=== PATIENT | female | born 1980 | race Caucasian/White ===

== ENCOUNTER 2017-06-21 22:18 | Emergency (ER) | payer MEDICAID ==
[2017-06-21 22:30] VITALS: BP 142/71
--- NOTE | 2017-06-21 22:54 | EDM.PDOC ---
ED HPI GENERAL MEDICAL PROBLEM - General Chief Complaint: Lower Extremity Injury/Pain Stated Complaint: LEFT LEG CONCERN OF BLOOD CLOT Time Seen by Provider: 06/21/17 22:51 Source of Information: Reports: Patient History Limitations: Reports: No Limitations - History of Present Illness INITIAL COMMENTS - FREE TEXT/NARRATIVE: pt is a 6/para 4. She has had a superficial clot on the left leg in the past that was treated with rest. Onset: Gradual Duration: Day(s): Location: Reports: Lower Extremity, Left Associated Symptoms: Reports: No Other Symptoms, Other (pt has not had sob. 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: Hematologic History: Reports: Other (See Below) Other Hematologic History: Blood clots d/t pregnacy - Infectious Disease History Infectious Disease History: Reports: Chicken Pox - Past Surgical History GI Surgical History: Reports: Cholecystectomy Social & Family History - Tobacco Use Smoking Status *Q: Never Smoker Second Hand Smoke Exposure: No - Caffeine Use Caffeine Use: Reports: Tea - Alcohol Use Days Per Week of Alcohol Use: 0 - Recreational Drug Use Recreational Drug Use: No Review of Systems - Review of Systems Review Of Systems: See Below Constitutional: Reports: No Symptoms Eyes: Reports: No Symptoms Ears: Reports: No Symptoms Nose: Reports: No Symptoms Mouth/Throat: Reports: No Symptoms Respiratory: Reports: No Symptoms Cardiovascular: Reports: No Symptoms GI/Abdominal: Reports: No Symptoms Musculoskeletal: Reports: Other ( tenderness in the left inner knee area with some inflamation. pt does not have definite swelling. ) Skin: Reports: No Symptoms ED EXAM, GENERAL - Physical Exam Exam: See Below Free Text/Narrative:: pt has redness and tenderness on the inner aspect of the left knee. She has a history of a superficial dvt with her last . She is on asa. Exam Limited By: No Limitations General Appearance: Alert, Mild Distress Ears: Normal TMs Nose: Normal Inspection Throat/Mouth: Normal Inspection Head: Atraumatic Neck: Normal Inspection Respiratory/Chest: No Respiratory Distress Cardiovascular: Regular Rate, Rhythm GI/Abdominal: Soft, Non-Tender, Other ( 29 weeks . ) (Female) Exam: Deferred Rectal (Female) Exam: Deferred Back Exam: Normal Inspection Extremities: Other ( There is redness and swelling on the inner aspect of the left knee. This is very tender to palpate. ) Neurological: Alert, Oriented, Normal Cognition Psychiatric: Normal Affect Course - Vital Signs Last Recorded V/S: Last Vital Signs Temp 36.3 C 06/21/17 22:35 Pulse 87 06/21/17 22:35 Resp 12 06/21/17 22:35 BP 142/71 H 06/21/17 22:35 Pulse Ox 96 06/21/17 22:35 - Orders/Labs/Meds Orders: Active Orders 24 hr Category Date Time Status VL Duplex Lwr Ext Veins Ltd Lt [US] Stat Exams 06/21/17 22:50 Taken - Re-Assessments/Exams Free Text/Narrative Re-Assessment/Exam: 06/22/17 00:08 pt had an US which showed a superficial phebetis but there is no deep vein changes. Departure - Departure Time of Disposition: 00:08 Disposition: Home, Self-Care 01 Condition: Fair Clinical Impression: 29 weeks gestation of , Superficial phlebitis - Discharge Information Referrals: Brooke Madison CNM [Primary Care Provider] - Forms: ED Department Discharge Care Plan Goals: Low activity, moist warm packs to the site, appt with Lalitha Madison on fri or . - My Orders Last 24 Hours: My Active Orders 06/21/17 22:50 VL Duplex Lwr Ext Veins Ltd Lt [US] Stat - Assessment/Plan Last 24 Hours: My Active Orders 06/21/17 22:50 VL Duplex Lwr Ext Veins Ltd Lt [US] Stat
== END 2017-06-22 00:34 | disposition home or self-care (01) ==
LOC: JP.ED 22:18
DX: O22.23 Superficial thrombophlebitis in pregnancy, third trimester (principal); Z3A.29 29 weeks gestation of pregnancy; Z88.0 Allergy status to penicillin; Z79.82 Long term (current) use of aspirin
CPT/HCPCS: 93971-LT; 99283; 99284-25

== ENCOUNTER 2017-08-27 05:54 | Inpatient (IN) | payer MEDICAID ==
[2017-08-27] MEDS ORDERED: Oxytocin 10 Units/1 ML SDV ONE ×2 (06:57→07:23)
[2017-08-27] MEDS: Lactated Ringers 1,000 ML IV SCH ×3 (07:21→19:34)
[2017-08-27] MEDS ORDERED: Dexamethasone 4 MG/ML SDV ONE (07:23)
[2017-08-27] MEDS ORDERED: Ondansetron 4 MG/2 ML SDV ONE (07:23)
[2017-08-27] MEDS ORDERED: ePHEDrine 50 MG/ML SDV ONE (07:23)
[2017-08-27] MEDS ORDERED: Phenylephrine 1% 10 MG/ML SDV ONE (08:29)
[2017-08-27] MEDS ORDERED: fentaNYL 100 MCG/2 ML SDV ONE (09:35)
[2017-08-27] MEDS ORDERED: fentaNYL 100 MCG/2 ML SDV IVPUSH ONE (09:35)
[2017-08-27] MEDS: Ondansetron 4 MG/2 ML SDV IVPUSH PRN ×2 (09:56→19:12)
[2017-08-27] MEDS ORDERED: Acetaminophen/Codeine 300-30 MG Tab PO PRN (10:57)
[2017-08-27] MEDS: Ibuprofen 600 MG Tab PO PRN ×3 (11:14→23:39)
[2017-08-27] MEDS: fentaNYL 100 MCG/2 ML SDV IVPUSH PRN ×8 (11:15→20:32)
[2017-08-27] MEDS ORDERED: hydrOXYzine HCl 100 MG/2 ML SDV ONE (11:29)
[2017-08-27] MEDS ORDERED: hydrOXYzine HCl 100 MG/2 ML SDV IM ONE (11:33)
[2017-08-27] MEDS: Acetaminophen/HYDROcodone 325-5 MG Tab PO PRN ×3 (12:41→20:46)
[2017-08-27] MEDS ORDERED: hydrOXYzine HCl 100 MG/2 ML SDV IM PRN (16:25)
[2017-08-27] MEDS ORDERED: fentaNYL/Normal Saline 600 MCG/30 ML PCA Vial IV PRN (20:20)
[2017-08-27] MEDS ORDERED: Naloxone 0.4 MG/ML SDV IVPUSH PRN (20:20)
[2017-08-28] MEDS: Acetaminophen/HYDROcodone 325-5 MG Tab PO PRN ×4 (01:15→13:13)
[2017-08-28] MEDS: Lactated Ringers 1,000 ML IV SCH ×3 (03:39→20:13)
--- NOTE | 2017-08-28 05:43 | PCM.SURGPN ---
- General Info POD#: 1 Post-Op Diagnosis: and BTL Admission Diagnosis/Problem: Breech presentation Functional Status: Reports: Tolerating Diet, Ambulating (Only a little yesterday ), Urinating (Vergara), Incentive Spirometry - Review of Systems General: Reports: Other (Pain) HEENT: Reports: No Symptoms Pulmonary: Reports: No Symptoms Cardiovascular: Reports: No Symptoms Gastrointestinal: Reports: Abdominal Pain. Denies: Nausea, Vomiting Genitourinary: Reports: No Symptoms Musculoskeletal: Reports: No Symptoms Skin: Reports: No Symptoms Neurological: Reports: No Symptoms Psychiatric: Reports: No Symptoms - Patient Data Vitals - Most Recent: Last Vital Signs Temp 97.8 F 08/28/17 03:51 Pulse 79 08/28/17 03:51 Resp 18 08/28/17 03:51 BP 129/68 08/28/17 03:51 Pulse Ox 97 08/28/17 03:51 Weight - Most Recent: 160 lb 0.008 oz I&O - Last 24 Hours: Intake & Output 08/27/17 08/27/17 08/28/17 14:59 22:59 06:59 Intake Total 1828 2535 Output Total 450 3200 2350 Balance -450 -1372 185 Lab Results Last 24 Hrs: Laboratory Results - last 24 hr 08/27/17 08/27/17 08/27/17 Range/Units 06:15 06:20 06:20 WBC 9.0 (4.5-11.0) K/uL RBC 4.56 (3.30-5.50) M/uL Hgb 14.0 (12.0-15.0) g/dL Hct 40.7 (36.0-48.0) % MCV 89 (80-98) fL MCH 31 (27-31) pg MCHC 34 (32-36) % Plt Count 205 (150-400) K/uL Sodium (140-148) mmol/L Potassium (3.6-5.2) mmol/L Chloride (100-108) mmol/L Carbon Dioxide (21-32) mmol/L Anion Gap (5.0-14.0) mmol/L BUN (7-18) mg/dL Creatinine (0.6-1.0) mg/dL Est Cr Clr Drug Dosing mL/min Estimated GFR (MDRD) (>60) Glucose (74-106) mg/dL Calcium (8.5-10.1) mg/dL Urine Opiates Screen Negative (NEGATIVE) Ur Oxycodone Screen Negative (NEGATIVE) Urine Methadone Screen Negative (NEGATIVE) Ur Propoxyphene Screen Negative (NEGATIVE) Ur Barbiturates Screen Negative (NEGATIVE) Ur Tricyclics Screen Negative (NEGATIVE) Ur Phencyclidine Scrn Negative (NEGATIVE) Ur Amphetamine Screen Negative (NEGATIVE) U Methamphetamines Scrn Negative (NEGATIVE) Urine MDMA Screen Negative (NEGATIVE) U Benzodiazepines Scrn Negative (NEGATIVE) U Cocaine Metab Screen Negative (NEGATIVE) U Marijuana (THC) Screen Negative (NEGATIVE) Blood Type A NEGATIVE Gel Antibody Screen Positive A* 08/27/17 08/27/17 08/28/17 Range/Units 06:20 15:51 04:40 WBC 16.1 H 15.5 H (4.5-11.0) K/uL RBC 3.89 3.57 (3.30-5.50) M/uL Hgb 12.0 D 11.0 L (12.0-15.0) g/dL Hct 34.8 L 32.6 L (36.0-48.0) % MCV 90 91 (80-98) fL MCH 31 31 (27-31) pg MCHC 35 34 (32-36) % Plt Count 196 177 (150-400) K/uL Sodium (140-148) mmol/L Potassium 3.9 (3.6-5.2) mmol/L Chloride (100-108) mmol/L Carbon Dioxide (21-32) mmol/L Anion Gap (5.0-14.0) mmol/L BUN (7-18) mg/dL Creatinine (0.6-1.0) mg/dL Est Cr Clr Drug Dosing mL/min Estimated GFR (MDRD) (>60) Glucose (74-106) mg/dL Calcium (8.5-10.1) mg/dL Urine Opiates Screen (NEGATIVE) Ur Oxycodone Screen (NEGATIVE) Urine Methadone Screen (NEGATIVE) Ur Propoxyphene Screen (NEGATIVE) Ur Barbiturates Screen (NEGATIVE) Ur Tricyclics Screen (NEGATIVE) Ur Phencyclidine Scrn (NEGATIVE) Ur Amphetamine Screen (NEGATIVE) U Methamphetamines Scrn (NEGATIVE) Urine MDMA Screen (NEGATIVE) U Benzodiazepines Scrn (NEGATIVE) U Cocaine Metab Screen (NEGATIVE) U Marijuana (THC) Screen (NEGATIVE) Blood Type Gel Antibody Screen 08/28/17 Range/Units 04:40 WBC (4.5-11.0) K/uL RBC (3.30-5.50) M/uL Hgb (12.0-15.0) g/dL Hct (36.0-48.0) % MCV (80-98) fL MCH (27-31) pg MCHC (32-36) % Plt Count (150-400) K/uL Sodium 140 (140-148) mmol/L Potassium 3.8 (3.6-5.2) mmol/L Chloride 108 (100-108) mmol/L Carbon Dioxide 24 (21-32) mmol/L Anion Gap 7.9 (5.0-14.0) mmol/L BUN 4 L (7-18) mg/dL Creatinine 0.6 (0.6-1.0) mg/dL Est Cr Clr Drug Dosing 99.80 mL/min Estimated GFR (MDRD) > 60 (>60) Glucose 142 H (74-106) mg/dL Calcium 8.3 L (8.5-10.1) mg/dL Urine Opiates Screen (NEGATIVE) Ur Oxycodone Screen (NEGATIVE) Urine Methadone Screen (NEGATIVE) Ur Propoxyphene Screen (NEGATIVE) Ur Barbiturates Screen (NEGATIVE) Ur Tricyclics Screen (NEGATIVE) Ur Phencyclidine Scrn (NEGATIVE) Ur Amphetamine Screen (NEGATIVE) U Methamphetamines Scrn (NEGATIVE) Urine MDMA Screen (NEGATIVE) U Benzodiazepines Scrn (NEGATIVE) U Cocaine Metab Screen (NEGATIVE) U Marijuana (THC) Screen (NEGATIVE) Blood Type Gel Antibody Screen Med Orders - Current: Current Medications Acetaminophen/Codeine Phosphate (Tylenol With Codeine No.3 300mg/30mg) 0.5 - 1 tab PO Q4H PRN PRN Reason: Pain Last Admin: 08/27/17 11:15 Dose: 0.5 tab Hydrocodone Bitart/Acetaminophen ([place] 325-5 Mg) 1 - 2 tab PO Q4H PRN PRN Reason: Pain Last Admin: 08/28/17 04:58 Dose: 2 tab Fentanyl (Sublimaze) 50 mcg IVPUSH Q1H PRN PRN Reason: Pain (severe 7-10) Last Admin: 08/27/17 20:32 Dose: 50 mcg Fentanyl Citrate (Fentanyl In Ns 20 Mcg/Ml 30 Ml Divemaster) 0 mcg IV ASDIRECTED PRN; Protocol PRN Reason: Pain Last Admin: 08/27/17 20:47 Dose: 10 mcg Hydroxyzine HCl (Vistaril) 50 mg IM Q6H PRN PRN Reason: Pain Last Admin: 08/27/17 20:34 Dose: 50 mg Lactated Ringer's (Ringers, Lactated) 1,000 mls @ 125 mls/hr IV ASDIRECTED CESAR Last Admin: 08/28/17 03:39 Dose: 100 mls/hr Vancomycin HCl 1 gm/ Sodium (Chloride) 250 mls @ 150 mls/hr IV Q12H CESAR Last Admin: 08/28/17 02:30 Dose: 150 mls/hr Ibuprofen (Motrin) 600 mg PO Q6H PRN PRN Reason: Pain Last Admin: 08/27/17 23:39 Dose: 600 mg Naloxone HCl (Narcan) 0.4 mg IVPUSH Q2M PRN PRN Reason: Respiratory Distress Ondansetron HCl (Zofran) 4 mg IVPUSH Q6H PRN PRN Reason: Nausea/Vomiting Last Admin: 08/27/17 19:12 Dose: 4 mg Discontinued Medications Dexamethasone (Dexamethasone) Confirm Administered Dose 4 mg .ROUTE .STK-MED ONE Stop: 08/27/17 07:24 Ephedrine Sulfate (Ephedrine Sulfate) Confirm Administered Dose 50 mg .ROUTE .STK-MED ONE Stop: 08/27/17 07:24 Fentanyl (Sublimaze) 75 mcg IVPUSH ONETIME ONE Stop: 08/27/17 09:36 Last Admin: 08/27/17 09:56 Dose: 75 mcg Fentanyl (Sublimaze) Confirm Administered Dose 100 mcg .ROUTE .STK-MED ONE Stop: 08/27/17 09:36 Last Admin: 08/27/17 09:50 Dose: Not Given Hydroxyzine HCl (Vistaril) Confirm Administered Dose 100 mg .ROUTE .STK-MED ONE Stop: 08/27/17 11:30 Last Admin: 08/27/17 11:36 Dose: Not Given Hydroxyzine HCl (Vistaril) 50 mg IM STAT ONE Stop: 08/27/17 11:34 Last Admin: 08/27/17 11:38 Dose: 50 mg Vancomycin HCl 1 gm/ Sodium (Chloride) 250 mls @ 150 mls/hr IV ONETIME ONE Stop: 08/27/17 09:09 Last Admin: 08/27/17 07:25 Dose: 150 mls/hr Ondansetron HCl (Zofran) Confirm Administered Dose 4 mg .ROUTE .STK-MED ONE Stop: 08/27/17 07:24 Oxytocin (Pitocin) Confirm Administered Dose 10 unit .ROUTE .STK-MED ONE Stop: 08/27/17 06:58 Last Admin: 08/27/17 08:03 Dose: 10 unit Oxytocin (Pitocin) Confirm Administered Dose 20 unit .ROUTE .STK-MED ONE Stop: 08/27/17 07:24 Phenylephrine HCl (Luis Manuel-Synephrine) Confirm Administered Dose 10 mg .ROUTE .STK- MED ONE Stop: 08/27/17 08:30 - Exam Wound/Incisions: Healing Well General: Alert, Oriented, Cooperative, No Acute Distress (While lying still. ) Lungs: Clear to Auscultation, Normal Respiratory Effort Cardiovascular: Regular Rate, Regular Rhythm GI/Abdominal Exam: Normal Bowel Sounds, Soft, Tender Extremities: Normal Inspection Skin: Warm, Dry, Intact Neurological: No New Focal Deficit Psy/Mental Status: Alert, Normal Affect, Normal Mood - Problem List & Annotations (1) Breech presentation SNOMED Code(s): 4300418 Code(s): O32.1XX0 - MATERNAL CARE FOR BREECH PRESENTATION, UNSP Status: Acute Current Visit: Yes - Problem List Review Problem List Initiated/Reviewed/Updated: Yes - My Orders Last 24 Hours: Active Orders 24 hr Category Date Time Status Patient Status [ADT] Routine ADT 08/27/17 09:11 Active Ambulate [RC] ASDIRECTED Care 08/27/17 09:11 Active Communication Order [RC] STAT Care 08/27/17 20:20 Active Diabetes Education [RC] Click to Edit Care 08/27/17 09:16 Active Head of Bed Elevation [RC] CONTINUOUS Care 08/27/17 09:11 Active Intake and Output [RC] Q4HR Care 08/27/17 09:13 Active Notify Provider Intake and Out [RC] PRN Care 08/27/17 09:13 Active Notify Provider Vital Signs [RC] PRN Care 08/27/17 09:13 Active Notify Provider [RC] PRN Care 08/27/17 20:20 Active Oxygen Therapy [RC] PRN Care 08/27/17 09:11 Active 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 [RC] PER UNIT ROUTINE Care 08/27/17 20:20 Active Pneumonia Education [RC] UPON Care 08/27/17 09:11 Active Pulse Oximetry [RC] CONTINUOUS Care 08/27/17 09:14 Inactive Pulse Oximetry [RC] CONTINUOUS Care 08/27/17 20:20 Active RT Incentive Spirometry [RC] Q1HWA Care 08/27/17 09:11 Active Turn, Cough, Deep Breathe [RC] Q1HWA Care 08/27/17 09:11 Active Up With Assistance [RC] ASDIRECTED Care 08/27/17 09:11 Active Up ad Ayala [RC] ASDIRECTED Care 08/27/17 09:11 Active Up to Chair [RC] TIDMEALS Care 08/27/17 09:11 Active VTE/DVT Education [RC] Click to Edit Care 08/27/17 09:16 Active Vital Signs [RC] PER UNIT ROUTINE Care 08/27/17 09:11 Active Pharmacy Consult [Consult to Pharmacy] [CONS] Routine Cons 08/28/17 01:53 Active Respiratory Care Assess and Treatment [CONS] Routine Cons 08/27/17 09:11 Active Regular Diet [DIET] Diet 08/27/17 Lunch Active ANTIBODY IDENTIFICATION [BBK] Stat Lab 08/27/17 06:20 Results BASIC METABOLIC PANEL,BMP [CHEM] DAILY Lab 08/29/17 04:30 Ordered BASIC METABOLIC PANEL,BMP [CHEM] DAILY Lab 08/30/17 04:30 Ordered BASIC METABOLIC PANEL,BMP [CHEM] DAILY Lab 08/31/17 04:30 Ordered BASIC METABOLIC PANEL,BMP [CHEM] DAILY Lab 09/01/17 04:30 Ordered BASIC METABOLIC PANEL,BMP [CHEM] DAILY Lab 09/02/17 04:30 Ordered CBC W/O DIFF,HEMOGRAM [HEME] DAILY Lab 08/29/17 04:30 Ordered CBC W/O DIFF,HEMOGRAM [HEME] DAILY Lab 08/30/17 04:30 Ordered CBC W/O DIFF,HEMOGRAM [HEME] DAILY Lab 08/31/17 04:30 Ordered CBC W/O DIFF,HEMOGRAM [HEME] DAILY Lab 09/01/17 04:30 Ordered CBC W/O DIFF,HEMOGRAM [HEME] DAILY Lab 09/02/17 04:30 Ordered DRUG SCREEN, URINE [URCHEM] Stat Lab 08/27/17 06:15 Ordered TYPE AND SCREEN [BBK] Stat Lab 08/27/17 06:20 Results Acetaminophen/Codeine [Tylenol with Codeine No.3 300MG/ Med 08/27/17 10:57 Active 30MG] 0.5 - 1 tab PO Q4H PRN Acetaminophen/HYDROcodone [[place] 325-5 MG] Med 08/27/17 11:42 Active 1 - 2 tab PO Q4H PRN Ibuprofen [Motrin] Med 08/27/17 11:04 Active 600 mg PO Q6H PRN Lactated Ringers [Ringers, Lactated] 1,000 ml Med 08/27/17 06:45 Active IV ASDIRECTED Naloxone [Narcan] Med 08/27/17 20:20 Active 0.4 mg IVPUSH Q2M PRN Ondansetron [Zofran] Med 08/27/17 09:11 Active 4 mg IVPUSH Q6H PRN Vancomycin 1 gm Med 08/28/17 02:00 Active Sodium Chloride 0.9% [Normal Saline] 250 ml IV Q12H fentaNYL [Sublimaze] Med 08/27/17 09:11 Active 50 mcg IVPUSH Q1H PRN fentaNYL/Normal Saline [fentaNYL in NS 20 MCG/ML 30 ML Med 08/27/17 20:20 Active 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] See Protocol IV ASDIRECTED PRN hydrOXYzine HCl [Vistaril] Med 08/27/17 16:25 Active 50 mg IM Q6H PRN Abdominal Binder [OM.PC] Per Unit Routine Oth 08/27/17 09:13 Ordered DVT/VTE Prophylaxis Reflex [OM.PC] Per Unit Routine Oth 08/27/17 09:16 Ordered Glucose Management Sub Q Reflex [OM.PC] QID Oth 08/27/17 09:11 Ordered Glucose Management Sub Q Reflex [OM.PC] QID Oth 08/28/17 09:11 Ordered Glucose Management Sub Q Reflex [OM.PC] QID Oth 08/29/17 09:11 Ordered Glucose Management Sub Q Reflex [OM.PC] QID Oth 08/30/17 09:11 Ordered Glucose Management Sub Q Reflex [OM.PC] QID Oth 08/31/17 09:11 Ordered Glucose Management Sub Q Reflex [OM.PC] QID Oth 09/01/17 09:11 Ordered Glucose Management Sub Q Reflex [OM.PC] QID Oth 09/02/17 09:11 Ordered Glucose Management Sub Q Reflex [OM.PC] QID Oth 09/03/17 09:11 Ordered Glucose Management Sub Q Reflex [OM.PC] QID Oth 09/04/17 09:11 Ordered Glucose Management Sub Q Reflex [OM.PC] QID Oth 09/05/17 09:11 Ordered Medication Discontinuation Instructions [OM.PC] Stat Oth 08/27/17 20:20 Ordered SCD [Sequential Compression Device] [OM.PC] Routine Oth 08/27/17 06:15 Ordered Sequential Compression Device [OM.PC] Routine Oth 08/27/17 09:11 Ordered Resuscitation Status Routine Resus Stat 08/27/17 09:11 Ordered Medication Orders Acetaminophen/Codeine Phosphate (Tylenol With Codeine No.3 300mg/30mg) 0.5 - 1 tab PO Q4H PRN PRN Reason: Pain Last Admin: 08/27/17 11:15 Dose: 0.5 tab Hydrocodone Bitart/Acetaminophen ([place] 325-5 Mg) 1 - 2 tab PO Q4H PRN PRN Reason: Pain Last Admin: 08/28/17 04:58 Dose: 2 tab Admin: 08/28/17 01:15 Dose: 2 tab Admin: 08/27/17 20:46 Dose: 2 tab Admin: 08/27/17 16:43 Dose: 2 tab Admin: 08/27/17 12:41 Dose: 1 tab Fentanyl (Sublimaze) 50 mcg IVPUSH Q1H PRN PRN Reason: Pain (severe 7-10) Last Admin: 08/27/17 20:32 Dose: 50 mcg Admin: 08/27/17 19:10 Dose: 50 mcg Admin: 08/27/17 16:42 Dose: 50 mcg Admin: 08/27/17 15:36 Dose: 50 mcg Admin: 08/27/17 14:31 Dose: 50 mcg Admin: 08/27/17 13:10 Dose: 50 mcg Admin: 08/27/17 12:15 Dose: 50 mcg Admin: 08/27/17 11:15 Dose: 50 mcg Fentanyl Citrate (Fentanyl In Ns 20 Mcg/Ml 30 Ml Divemaster) 0 mcg IV ASDIRECTED PRN; Protocol PRN Reason: Pain Last Admin: 08/27/17 20:47 Dose: 10 mcg Hydroxyzine HCl (Vistaril) 50 mg IM Q6H PRN PRN Reason: Pain Last Admin: 08/27/17 20:34 Dose: 50 mg Lactated Ringer's (Ringers, Lactated) 1,000 mls @ 125 mls/hr IV ASDIRECTED CESAR Last Admin: 08/28/17 03:39 Dose: 100 mls/hr Infusion: 08/28/17 03:39 Dose: 100 mls/hr Admin: 08/27/17 19:34 Dose: 100 mls/hr Infusion: 08/27/17 19:34 Dose: 100 mls/hr Admin: 08/27/17 11:25 Dose: 100 mls/hr Infusion: 08/27/17 11:25 Dose: 100 mls/hr Admin: 08/27/17 07:21 Dose: 100 mls/hr Vancomycin HCl 1 gm/ Sodium (Chloride) 250 mls @ 150 mls/hr IV Q12H [facility] Last Admin: 08/28/17 02:30 Dose: 150 mls/hr Ibuprofen (Motrin) 600 mg PO Q6H PRN PRN Reason: Pain Last Admin: 08/27/17 23:39 Dose: 600 mg Admin: 08/27/17 17:16 Dose: 600 mg Admin: 08/27/17 11:14 Dose: 600 mg Naloxone HCl (Narcan) 0.4 mg IVPUSH Q2M PRN PRN Reason: Respiratory Distress Ondansetron HCl (Zofran) 4 mg IVPUSH Q6H PRN PRN Reason: Nausea/Vomiting Last Admin: 08/27/17 19:12 Dose: 4 mg Admin: 08/27/17 09:56 Dose: 4 mg - Assessment Assessment (Free Text/Narrative):: Abdominal pain in patient who had Strep agalactiae culture on Vancomycin. - Plan Plan (Free Text/Narrative):: D/C Vergara. Continue Vancomycin.
[2017-08-28] MEDS: Ibuprofen 600 MG Tab PO PRN ×2 (05:58→11:55)
--- NOTE | 2017-08-28 10:21 | OR ---
DATE OF PROCEDURE: 08/27/2017 PREOPERATIVE DIAGNOSIS: Term , breech presentation, multiparity, desires sterilization. POSTOPERATIVE DIAGNOSIS: Term , breech presentation, multiparity, desires sterilization. PROCEDURE: section and bilateral tubal ligation. SURGEON: Sukhjinder Cooper MD COMBATANT DIVER QUALIFIED: Dionna Madison, nurse painting supervisor. Per A[employer]G standard of care guidelines, this operation requires a printing assistant. ANESTHESIA: Subarachnoid block. INDICATION: This 36-year-old white female is with her fifth child. Her first four were delivered vaginally; however, this child is breech. She is at 39 weeks' gestation today, and request is made for section. Additionally, she has requested and obtained permission from the Ethics Committee to proceed with a bilateral tubal ligation. I counseled her for the section and bilateral tubal ligation for sterilization, including risks and alternatives, and she gave her informed consent to proceed. DESCRIPTION OF PROCEDURE: After adequate spinal anesthesia was obtained, a Vergara catheter was placed and a wedge was placed under her right flank. Her abdomen was prepped and draped in the usual sterile fashion. Time-out was held. A Pfannenstiel incision was made. This was carried deep using Bovie cautery to the fascia. The fascia was incised transversely and upper and lower subfascial flaps were developed from the pubis to the umbilicus. The muscles in the midline were and the peritoneum was elevated and incised. The peritoneal incision was extended inferiorly and superiorly the length of the flaps using Bovie cautery while protecting underlying structures. The bladder flap was dissected free from the lower uterine segment. A transverse lower uterine segment incision was then made releasing normal-appearing amniotic fluid. The incision was extended laterally in both directions with bandage scissors and then bluntly expanded. The child indeed was noted to be breech and was delivered. The cord was doubly clamped and divided while the nose and mouth were aspirated free. This was found to be a baby girl, ultimately shown to have scores of 9 and 9. She appeared to have a 3-vessel umbilical cord. The placenta was delivered. It appeared to be intact. The uterus was delivered up onto the anterior abdominal wall. 10 units of Pitocin was directly injected into the uterine body , and IV Pitocin was started by the Anesthesia Service. All looked well. The transverse lower uterine segment incision was then closed with a running locking stitch of #1 Vicryl. A second running locking stitch of #1 Vicryl was placed over the first to further bolster the closure. The bilateral tubal ligation was then performed. The right tube was grasped, elevated, and a portion was crossclamped forming a knuckle. A portion of this knuckle was excised and sent to pathology. The exposed ends of the tube were crushed, cauterized, and suture-ligated with 3-0 Prolene. The base of the knuckle was suture-ligated with 3-0 Monocryl to ensure hemostasis. Hemostasis was noted. Attention was then directed to the left fallopian tube. A portion of the tube was grasped, elevated, and crossclamped, forming a knuckle. A portion of this knuckle was excised and sent to pathology. The exposed ends of the tube were crushed, cauterized, and suture-ligated with 3-0 Prolene. The base of the knuckle was suture-ligated with 3-0 Monocryl. All looked well. The retrouterine space was irrigated and suctioned dry. The bladder flap was attached up over the transverse lower uterine segment incision with a running stitch of #1 Vicryl. The uterus was returned to the abdominal cavity. The muscles and peritoneum in the midline were closed with a running stitch of #2 Vicryl. The incision was irrigated and suctioned dry. The fascia was closed with a running stitch of #2 Vicryl. The incision was again irrigated and suctioned dry. 4- 0 Vicryl using a subcuticular stitch was placed to approximate the skin. Dermabond was applied. The patient tolerated the procedure well and was brought from the operating room in good condition. Sukhjinder Cooper MD /[id number] EMEKA
[2017-08-28] MEDS: Docusate Sodium 100 MG Cap PO PRN ×2 (11:55→21:39)
[2017-08-28] MEDS: oxyCODONE 5 MG Tab PO PRN ×3 (13:52→22:35)
[2017-08-28] MEDS: Ketorolac 30 MG/ML SDV IVPUSH SCH (18:21)
[2017-08-28] MEDS: Acetaminophen 500 MG Tab PO SCH (21:39)
[2017-08-29] MEDS: Ketorolac 30 MG/ML SDV IVPUSH SCH ×2 (00:16→06:02)
[2017-08-29] MEDS: Acetaminophen 500 MG Tab PO SCH ×4 (02:53→20:24)
[2017-08-29] MEDS: oxyCODONE 5 MG Tab PO PRN ×5 (02:53→21:56)
[2017-08-29] MEDS: Lactated Ringers 1,000 ML IV SCH (04:22)
[2017-08-29] MEDS ORDERED: Magnesium Hydroxide 400 MG/5 ML Susp 30 ML Cup PO ONE (09:15)
[2017-08-29] MEDS ORDERED: Bisacodyl 5 MG Tab PO ONE (10:00)
--- NOTE | 2017-08-29 13:09 | PN ---
DATE OF SERVICE: 08/29/2017 SUBJECTIVE: Kellie had a and tubal ligation on 08/27/2017. She states her pain is controlled today with a combination of oxycodone and IV Toradol. She has not had a bowel movement yet. She does ask if she can go home later today. She currently is on vancomycin for Strep agalactiae resistant to clindamycin. ALLERGIES: PENICILLIN ALLERGY. REVIEW OF SYSTEMS: Remainder of review of systems negative for any pertinent positives and negatives. OBJECTIVE: GENERAL: Kellie Woodruff is a 36-year-old female, alert and orientated. VITAL SIGNS: TPR is 98.5, 65, 16, blood pressure 126/69. HEENT: Negative. NECK: Supple. HEART: Regular rate and rhythm. LUNGS: Clear. ABDOMEN: Normally tender. EXTREMITIES: Without peripheral edema. ASSESSMENT: and bilateral tubal ligation for term , breech presentation, and multiparity, desiring sterilization. PLAN: Milk of magnesia 30 mL now, give Dulcolax 10 mg p.o. 1 hour after milk of magnesia. DC IV Toradol. We will consult with Brooke Pinto, nurse doctorate of chiropractic, in regard to length of treatment of Strep agalactiae. May shower. We will evaluate p.r.n. or in a.m. Anabella Umanzor PA-C /[id number]
[2017-08-29] MEDS: Linezolid 600 MG in Premix Bag 1 BAG IV SCH (21:35)
[2017-08-30] MEDS: oxyCODONE 5 MG Tab PO PRN ×6 (01:53→22:34)
[2017-08-30] MEDS: Acetaminophen 500 MG Tab PO SCH ×4 (03:08→20:36)
[2017-08-30] MEDS: Linezolid 600 MG in Premix Bag 1 BAG IV SCH ×2 (09:17→20:37)
[2017-08-30] MEDS ORDERED: Meropenem 500 MG in Sodium Chloride 0.9% 50 ML IV SCH ×2 (10:00→18:00)
[2017-08-30] MEDS: Docusate Sodium 100 MG Cap PO PRN (10:12)
[2017-08-30] MEDS ORDERED: Linezolid 600 MG Tab ONE (22:30)
[2017-08-30] MEDS: Linezolid 600 MG Tab PO SCH (22:33)
[2017-08-30] MEDS: Doxycycline 100 MG Cap PO SCH (22:33)
[2017-08-31] MEDS ORDERED: Ibuprofen 600 MG Tab PO ONE (01:14)
[2017-08-31] MEDS: oxyCODONE 5 MG Tab PO PRN ×3 (02:28→12:14)
[2017-08-31] MEDS: Acetaminophen 500 MG Tab PO SCH ×2 (02:30→09:18)
[2017-08-31 08:09] VITALS: BP 137/88
[2017-08-31] MEDS: Linezolid 600 MG Tab PO SCH (09:18)
[2017-08-31] MEDS: Doxycycline 100 MG Cap PO SCH (09:19)
[2017-08-31] MEDS ORDERED: Ondansetron 4 MG Tab.DIS PO ONE ×2 (11:04→11:30)
--- NOTE | 2017-09-01 08:58 | PN ---
DATE OF SERVICE: 08/30/2017 The patient has been afebrile with stable vital signs. She is, however, having quite a bit of redness and swelling in the suprapubic area, extending down onto the labia, as well as in a triangle going up from the incision toward the umbilicus. There is no drainage per se. The situation is certainly suggestive of cellulitis. She was started on Zyvox last night, which should cover the strep that was cultured preoperatively, which was resistant to some of the other antibiotics. With this persisting overnight, we will add some meropenem, in the event that there is some other organism involved. Otherwise, continue to actively watch for signs of any spreading infection or drainage. Otherwise, continue the present pain medication and activity level. Zev Avery MD /[id number]
--- NOTE | 2017-09-01 11:28 | DISCH ---
FINAL DIAGNOSES: 1. Term with breech presentation. 2. Multiparity. 3. Postoperative cellulitis involving lower abdominal incision. 4. History of superficial phlebitis. 5. Vaginal culture showing group B strep with resistance pattern. OPERATIVE PROCEDURES: Done on 08/27/2017, section with bilateral tubal ligation by Sukhjinder Cooper MD. SUMMARY: This is a 36-year-old presenting with term in labor. After failing to progress, it was determined that she had a breech presentation, and the patient underwent section, along with a planned bilateral tubal ligation. Postoperatively, the patient initially developed somewhat of a rash related to the abdominal binder, but then developed what appeared to be a cellulitis involving the abdominal wound. This did not result in any drainage from the wound, but a large area of redness extending up to the umbilicus and redness and quite a bit in the way of edema spreading down into the pubic and vulvar areas. Preoperatively, the patient was noted to have vaginal culture showing resistant streptococcal organism. This was resistant to the clindamycin, but sensitive to penicillin and ceftriaxone. The patient is allergic to penicillin. With the cellulitis, the patient was then started on Zyvox 600 mg q.12 hours and subsequently on meropenem 500 mg q.6 hours. With this, the cellulitis appeared to be resolving. She has not been febrile with the overall process, and she will be discharged home at this time. Plan with regard to antibiotics will be to proceed with doxycycline 100 mg p.o. b.i.d., to try to cover organisms other than the strep that might potentially be involved and then also do Zyvox 600 mg p.o. b.i.d. x7 days. The Zyvox is the only likely antibiotic that is available in oral version, other than the penicillins, that would cover the streptococcal organism cultured vaginally. Additional medications on discharge will include oxycodone 5 or 10 mg p.o. q.4 hours p.r.n. pain #50, Tylenol Extra Strength 1000 mg p.o. q.i.d. p.r.n., and Colace 100 mg p.o. b.i.d. x1 month. She will be instructed to continue multivitamins, folic acid, and cranberry until those are used up, and she will be restarting her aspirin 81 mg a day as well. She will be following up with Dr. Cooper at [facility] on 09/05/2017, and then Ms. Dionna Madison CNM at [facility] in roughly 1 month. She is instructed if she develops fever, increasing redness once again, or drainage from the incision, then she should call the hospital at that time to contact the on-call surgeon.
== END 2017-08-31 12:50 | disposition home or self-care (01) | DRG 765 ==
LOC: JP.SDS 05:54 → JP.SDSSCHI 08:02 → JP.MS 08:05
PROVIDERS: ADMIT Surgery; ATTEND Surgery
PROC: 10D00Z1 Extraction of Products of Conception, Low, Open Approach (ICD-10-PCS; principal; 2017-08-27)
PROC: 0UL70ZZ Occlusion of Bilateral Fallopian Tubes, Open Approach (ICD-10-PCS; 2017-08-27)
PROC: 3E0334Z Introduction of Serum, Toxoid and Vaccine into Peripheral Vein, Percutaneous Approach (ICD-10-PCS; 2017-08-27)
DX: O32.1XX0 Maternal care for breech presentation, not applicable or unspecified (principal); O86.89 Other specified puerperal infections; L03.818 Cellulitis of other sites; L03.311 Cellulitis of abdominal wall; O24.420 Gestational diabetes mellitus in childbirth, diet controlled; Z3A.39 39 weeks gestation of pregnancy; Z37.0 Single live birth; Z30.2 Encounter for sterilization; Z67.91 Unspecified blood type, Rh negative; O99.824 Streptococcus B carrier state complicating childbirth; Z88.0 Allergy status to penicillin; Z87.891 Personal history of nicotine dependence; Z86.72 Personal history of thrombophlebitis; Z16.39 Resistance to other specified antimicrobial drug
CPT/HCPCS: 36415; 59409; 80048; 80305; 82962; 84132; 85027; 85460; 86850; 86870; 86900; 86901; 88302; 88307; 94762; A9270-GY; J1100; J1885; J2020; J2185; J2370; J2405; J2590; J2790; J3010; J3370; J3410; J7050; J7120

== ENCOUNTER 2019-06-20 20:21 | Emergency (ER) | payer MEDICAID ==
[2019-06-20 21:00] VITALS: BP 135/75; PULSE 82
--- NOTE | 2019-06-20 21:29 | EDM.PDOC ---
ED HPI GENERAL MEDICAL PROBLEM - General Chief Complaint: Genitourinary Problem Stated Complaint: CONCERN FOR TOXIC SHOCK SYNDROME Time Seen by Provider: 06/20/19 21:18 Source of Information: Reports: Patient, RN Notes Reviewed History Limitations: Reports: No Limitations - History of Present Illness INITIAL COMMENTS - FREE TEXT/NARRATIVE: 38-year-old female presents to the emergency department with a complaint of retained tampon, she was on vacation she believes the tampon was in her vagina may be 3 days she has had some vaginal dryness as well as body aches and chills no fevers she is noticed a foul odor as well. The tampon was removed today - Related Data Allergies Allergy/AdvReac Type Severity Reaction Status Date / Time Penicillins Allergy Intermediate Rash Verified 06/20/19 21:00 Home Meds: Home Meds Aspirin [[place] Aspirin] 81 mg PO DAILY 04/15/17 [History] Past Medical History HEENT History: Reports: Impaired Vision [employer] History: Reports: , Spontaneous Neurological History: Reports: Migraines Endocrine/Metabolic History: Reports: Obesity/BMI 30+ Hematologic History: Reports: Other (See Below) Other Hematologic History: Blood clots d/t pregnacy Dermatologic History: Reports: Other (See Below) Other Dermatologic History: varicose veins - Infectious Disease History Infectious Disease History: Reports: Chicken Pox - Past Surgical History HEENT Surgical History: Reports: Oral Surgery GI Surgical History: Reports: Cholecystectomy Social & Family History - Tobacco Use Smoking Status *Q: Never Smoker - Caffeine Use Caffeine Use: Reports: Soda ED ROS GENERAL - Review of Systems Review Of Systems: See Below Constitutional: Reports: Chills HEENT: Reports: No Symptoms Respiratory: Reports: No Symptoms Cardiovascular: Reports: No Symptoms GI/Abdominal: Denies: Abdominal Pain, Nausea, Vomiting : Reports: Other (Odor and dryness) ED EXAM, RENAL/ - Physical Exam Exam: See Below Exam Limited By: No Limitations General Appearance: Alert, WD/WN, No Apparent Distress Respiratory/Chest: No Respiratory Distress, Lungs Clear, Normal Breath Sounds, No Accessory Muscle Use, Chest Non-Tender Cardiovascular: Regular Rate, Rhythm, No Murmur GI/Abdominal: Soft, Non-Tender (Female) Exam: Normal External Exam, Normal Bimanual Exam, Vaginal Bleeding. No: Cervix Motion Tenderness, Vaginal Discharge, Vaginal Lesions, Vaginal Tears Course - Vital Signs Last Recorded V/S: Last Vital Signs Temp 98.0 F 06/20/19 21:10 Pulse 82 06/20/19 21:10 Resp 16 06/20/19 21:10 BP 135/75 06/20/19 21:10 Pulse Ox 98 06/20/19 21:10 - Orders/Labs/Meds Labs: Laboratory Tests 06/20/19 06/20/19 06/20/19 Range/Units 21:31 21:36 21:36 WBC 7.0 (4.5-11.0) K/uL RBC 4.62 (3.30-5.50) M/uL Hgb 13.5 D (12.0-15.0) g/dL Hct 41.4 (36.0-48.0) % MCV 90 (80-98) fL MCH 29 (27-31) pg MCHC 33 (32-36) % Plt Count 304 (150-400) K/uL Neut % (Auto) 69 H (36-66) % Lymph % (Auto) 17 L (24-44) % [place] % (Auto) 11 H (2-6) % Eos % (Auto) 3 (2-4) % Baso % (Auto) 0 (0-1) % PT 10.5 (9.5-12.0) sec INR 0.97 (0.80-1.20) Sodium (140-148) mmol/L Potassium (3.6-5.2) mmol/L Chloride (100-108) mmol/L Carbon Dioxide (21-32) mmol/L Anion Gap (5.0-14.0) mmol/L BUN (7-18) mg/dL Creatinine (0.6-1.0) mg/dL Est Cr Clr Drug Dosing mL/min Estimated GFR (MDRD) (>60) Glucose (74-106) mg/dL Lactic Acid (0.4-2.0) mmol/L Calcium (8.5-10.1) mg/dL Total Bilirubin (0.2-1.0) mg/dL AST (15-37) U/L ALT (12-78) U/L Alkaline Phosphatase (46-116) U/L Total Protein (6.4-8.2) g/dL Albumin (3.4-5.0) g/dL Globulin (2.3-3.5) g/dL Albumin/Globulin Ratio (1.2-2.2) Urine Color Yellow (YELLOW) Urine Appearance Cloudy A (CLEAR) Urine pH 6.0 (5.0-8.0) Ur Specific [place] 1.025 (1.008-1.030) Urine Protein Negative (NEGATIVE) mg/dL Urine Glucose (UA) Negative (NEGATIVE) mg/dL Urine Ketones Negative (NEGATIVE) mg/dL Urine Occult Blood Moderate H (NEGATIVE) Urine Nitrite Negative (NEGATIVE) Urine Bilirubin Negative (NEGATIVE) Urine Urobilinogen 0.2 (0.2-1.0) EU/dL Ur Leukocyte Esterase Negative (NEGATIVE) Urine RBC 40-50 H (0-5) Urine WBC 0-5 (0-5) Ur Epithelial Cells Few Amorphous Sediment Not seen Urine Bacteria Rare Urine Mucus Not seen 06/20/19 06/20/19 Range/Units 21:36 21:36 WBC (4.5-11.0) K/uL RBC (3.30-5.50) M/uL Hgb (12.0-15.0) g/dL Hct (36.0-48.0) % MCV (80-98) fL MCH (27-31) pg MCHC (32-36) % Plt Count (150-400) K/uL Neut % (Auto) (36-66) % Lymph % (Auto) (24-44) % [place] % (Auto) (2-6) % Eos % (Auto) (2-4) % Baso % (Auto) (0-1) % PT (9.5-12.0) sec INR (0.80-1.20) Sodium 144 (140-148) mmol/L Potassium 3.7 (3.6-5.2) mmol/L Chloride 105 (100-108) mmol/L Carbon Dioxide 29 (21-32) mmol/L Anion Gap 10.0 (5.0-14.0) mmol/L BUN 17 D (7-18) mg/dL Creatinine 0.8 (0.6-1.0) mg/dL Est Cr Clr Drug Dosing 69.83 mL/min Estimated GFR (MDRD) > 60 (>60) Glucose 92 (74-106) mg/dL Lactic Acid 2.0 (0.4-2.0) mmol/L Calcium 8.9 (8.5-10.1) mg/dL Total Bilirubin 0.3 (0.2-1.0) mg/dL AST 16 (15-37) U/L ALT 15 (12-78) U/L Alkaline Phosphatase 56 (46-116) U/L Total Protein 7.3 (6.4-8.2) g/dL Albumin 4.0 (3.4-5.0) g/dL Globulin 3.3 (2.3-3.5) g/dL Albumin/Globulin Ratio 1.2 (1.2-2.2) Urine Color (YELLOW) Urine Appearance (CLEAR) Urine pH (5.0-8.0) Ur Specific [place] (1.008-1.030) Urine Protein (NEGATIVE) mg/dL Urine Glucose (UA) (NEGATIVE) mg/dL Urine Ketones (NEGATIVE) mg/dL Urine Occult Blood (NEGATIVE) Urine Nitrite (NEGATIVE) Urine Bilirubin (NEGATIVE) Urine Urobilinogen (0.2-1.0) EU/dL Ur Leukocyte Esterase (NEGATIVE) Urine RBC (0-5) Urine WBC (0-5) Ur Epithelial Cells Amorphous Sediment Urine Bacteria Urine Mucus Departure - Departure Time of Disposition: 22:50 Disposition: Home, Self-Care 01 Condition: Fair Clinical Impression: Vaginal discomfort - Discharge Information Referrals: Jensen Mac MD [Primary Care Provider] - Forms: ED Department Discharge Additional Instructions: Please followup with your primary care provider in 3-5 days if not better, please call return to the emergency department with worsening of symptoms. Sepsis Event Note - Evaluation Sepsis Screening Result: No Definite Risk - Focused Exam Vital Signs: Vital Signs Temp Pulse Resp BP Pulse Ox 06/20/19 21:10 98.0 F 82 16 135/75 98 06/20/19 20:59 98.0 F 82 16 135/75 98 Date Exam was Performed: 06/20/19 Time Exam was Performed: 22:49 - Assessment/Plan Plan: Assessment Acuity = acute Site and laterality = vaginal discomfort Etiology = unknown Manifestations = none Location of injury = Home Lab values = CBC, CMP, INR, wet prep unremarkable urinalysis shows no sign of infection Plan I did review lab work results with her she is got a follow-up with her primary care in the next 3 to 5 days for reevaluation if not better in the meantime try sonny baths and a probiotic This note was dictated using [employer] voice recognition software please call with any questions on syntax or grammar.
== END 2019-06-20 22:57 | disposition home or self-care (01) ==
LOC: JP.ED 20:21
DX: R10.2 Pelvic and perineal pain (principal); E66.9 Obesity, unspecified; Z88.0 Allergy status to penicillin; Z79.82 Long term (current) use of aspirin; Z90.49 Acquired absence of other specified parts of digestive tract; Z68.29 Body mass index [BMI] 29.0-29.9, adult
CPT/HCPCS: 36415; 80053; 81001; 83605; 85025; 85610; 87210; 99282; 99283